=== PATIENT | male | born 1975 | race Caucasian/White ===

== ENCOUNTER 2018-09-05 21:12 | Emergency (ER) | payer BC ==
[~2018-09-05] VITALS: Ht 188 cm; Wt 90.7 kg
[2018-09-05 21:38] VITALS: BP 126/84
[2018-09-05] MEDS ORDERED: PROMETHAZINE-C118 M1 ORAL (22:13)
[2018-09-05] MEDS ORDERED: AMOXICILLIN500 MG ORAL (22:13)
[2018-09-05 22:15] VITALS: BP 126/84
--- NOTE | 2018-09-06 00:58 | Emergency Room Report ---
History of Present Illness General Chief Complaint: General Complaint Source: Patient Present Illness HPI 42-year-old male presents ED for evaluation. Complaining of sore throat and cough. Started 2 weeks ago. He is not improving. Pain is dull, 5 out of 10, nonradiating. Cough is productive with yellowish phlegm. Afebrile. Denies sick contacts or recent travel. No other aggravating relieving factors. Denies any other associated symptoms Allergies: Coded Allergies: No Known Allergies (Unverified , 09/05/18) Patient History Past Medical History: none Past Surgical History: none Pertinent Family History: none Social History: Denies: smoking, alcohol use, drug use Immunizations: UTD Reviewed Nursing Documentation: PMH: Agreed; PSxH: Agreed Nursing Documentation-PMH Past Medical History: No Stated History Review of Systems All Other Systems: negative except mentioned in HPI Physical Exam Vital Signs Date Time Temp Pulse Resp B/P (MAP) Pulse Ox O2 Delivery O2 Flow Rate FiO2 09/05/18 21:17 98.1 79 18 126/84 99 Room Air Sp02 EP Interpretation: reviewed, normal General Appearance: no apparent distress, alert, GCS 15, non-toxic Head: normocephalic Eyes: bilateral eye normal inspection, bilateral eye PERRL ENT: hearing grossly normal, no angioedema, normal voice, TMs + canals normal, pharyngeal erythema, tonsillar exudate Neck: full range of motion, supple, supple/symm/no masses Respiratory: chest non-tender, lungs clear, normal breath sounds, speaking full sentences Cardiovascular #1: regular rate, rhythm, no edema Gastrointestinal: normal inspection Rectal: deferred Genitourinary: no CVA tenderness Musculoskeletal: normal inspection Neurologic: alert, oriented x3, responsive, motor strength/tone normal, sensory intact, speech normal Psychiatric: normal inspection Skin: normal inspection Lymphatic: normal inspection Medical Decision Making Diagnostic Impression: Primary Impression: Pharyngitis Qualified Codes: J02.9 - Acute pharyngitis, unspecified ER Course Hospital Course 42-year-old male presents to ED complaining of sore throat + cough Differential diagnoses include: URI, pharyngitis, otitis media Clinical course Patient placed on stretcher. After initial history, physical exam reveals a male in no acute distress. Bilateral TM unremarkable. There is pharyngeal erythema w/ tonsillar exudates. No lymphadenopathy. Bilateral TM unremarkable. Lungs clear Consideration for viral pharyngitis. However symptoms persisting for more than 2 weeks. We will treat with antibiotics. Safe for discharge or close outpatient follow-up. States he has a PMD Diagnosis - pharyngitis Stable and discharged home with prescriptions for promethazine/codeine, amoxicillin. Instructed to followup with PMD. return to ED if symptoms recur or worsen Last Vital Signs Date Time Temp Pulse Resp B/P (MAP) Pulse Ox O2 Delivery O2 Flow Rate FiO2 09/05/18 22:15 98.1 79 18 126/84 99 Room Air Status: improved Disposition: HOME, SELF-CARE Condition: Stable Scripts Codeine/Promethazine Hcl* (PROMETHAZINE-CODEINE SYRUP*) 118 Ml Syrup 5 ML ORAL Q6H PRN for For Cough, #118 ML 0 Refills Prov: Davy Waters MD 09/05/18 Amoxicillin* (AMOXIL*) 500 Mg Capsule 500 MG ORAL THREE TIMES A DAY, #21 CAP Prov: Davy Waters MD 09/05/18 Referrals: NOT CHOSEN IPA/,REFERRING (PCP) Patient Instructions: Pharyngitis, [id number] Davy Waters MD Sep 06, 2018 00:58
== END 2018-09-05 23:00 | disposition home or self-care (01) ==
LOC: EMR 22:32
DX: J02.9 Acute pharyngitis, unspecified (principal)
CPT/HCPCS: 99282

== ENCOUNTER 2019-12-23 20:58 | Emergency (ER) | payer BC ==
[~2019-12-23] VITALS: Ht 188 cm; Wt 89.4 kg
[~2019-12-23 20:58] MED LIST: AMOXICILLIN500 MG ORAL; PROMETHAZINE-C118 M1 ORAL
--- NOTE | 2019-12-23 21:00 | NUR ---
ED Nurse Note: PT WALKED IN TO ED C/O RIGHT MIDDLE TOE PAIN S/P CHAIR FALLING ON IT AT 1300 TODAY. DOES NOT PRESENT WITH INJURY OR TRAUMA. VSS, NAD, AAOX4, TOE CLEAN DRY AND INTACT
--- NOTE | 2019-12-23 21:20 | Emergency Room Report ---
History of Present Illness General Chief Complaint: Lower Extremity Injury Source: Patient Present Illness HPI Disclaimer: Please note that this report is being documented using DRAGON technology. This can lead to erroneous entry secondary to incorrect interpretation by the dictating instrument. HPI: 44-year-old male presents for evaluation of left toe pain. Patient excellently dropped a chair on the third toe just over the toenail proximally 1 PM this afternoon. Noted pain and throbbing throughout the day. Difficulty with ambulating. He tried to self trephination thinking that it might be a subungual hematoma as he has had in the past. He was not able to penetrate through the nail. Has not taken any medication since. Denies any pain in the midfoot or the ankle. No other injury reported. No other complaints at this time. PMH: Denies PSH: Denies Allergies: Denies Allergies: Coded Allergies: No Known Allergies (Unverified , 09/05/18) COVID-19 Screening Contact w/high risk pt: No Recent Travel to affected area: No Experienced COVID-19 symptoms?: No COVID-19 Testing performed MEDICAL IMAGING TECHNICIAN: No Nursing Documentation-PMH Past Medical History: No Stated History Review of Systems All Other Systems: negative except mentioned in HPI Physical Exam Vital Signs Date Time Temp Pulse Resp B/P (MAP) Pulse Ox O2 Delivery O2 Flow Rate FiO2 12/23/19 21:05 98.1 78 18 132/72 (92) 99 Room Air General: Awake and alert, no acute distress HEENT: NC/AT. EOMI. Resp: Normal work of breathing Skin: Intact. No abrasions, laceration or rash over the exposed skin MSK: Normal tone and bulk. Moving all extremities. No obvious deformity. No tenderness in the midfoot or over the medial or lateral malleolus on the left ankle. There is tenderness palpation over the nail of the middle toe on the left foot. No subungual hematoma. No signs of surrounding cellulitis, infection, no skin breakdown. Over the toenail itself there is a discoloration presumably from the attempted trephination that does not penetrate through to the nail Neuro: Awake and alert. Mentating appropriately Medical Decision Making Diagnostic Impression: Primary Impression: Toe contusion ER Course 44-year-old male presents for evaluation of left toe pain after an injury. No evidence of subungual hematoma. Concern for fracture or dislocation x-ray was obtained. No evidence of fracture or subluxation. Patient will be treated with NSAIDs for toe contusion. Can return to activities as able. Follow-up with PMD as needed. He understands and agrees with this treatment plan. Other X-Ray Diagnostic Results Other X-Ray Diagnostic Results : X-Ray ordered: Left toes # of Views/Limited Vs Complete: 3 View Indication: Pain EP Interpretation: Yes Interpretation: no dislocation, no soft tissue swelling, no fractures Impression: No acute disease Electronically Signed by: Electronically signed by Dr. Scott Phillips Last Vital Signs Date Time Temp Pulse Resp B/P (MAP) Pulse Ox O2 Delivery O2 Flow Rate FiO2 12/23/19 21:05 98.1 78 18 132/72 (92) 99 Room Air Disposition: HOME, SELF-CARE Condition: Stable Scripts Ibuprofen* (MOTRIN*) 600 Mg Tablet 600 MG ORAL Q6H PRN for For Pain, #30 TAB 0 Refills Prov: Scott Phillips MD 12/23/19 Referrals: NON PHYSICIAN (PCP) Scott Phillips MD December 23, 2019 21:20
--- NOTE | 2019-12-23 21:30 | NUR ---
ED Nurse Note: XR AT BEDSIDE
[2019-12-23] MEDS ORDERED: IBUPROFEN600 M1 ORAL (21:41)
--- NOTE | 2019-12-23 21:42 | Diagnostic Imaging Report ---
Left toe 3 views History: Pain, injury Findings: Metatarsal, MTP joints, distal digits, interphalangeal joints are noted to be normal. Negative for fracture or subluxation. Soft tissues are unremarkable. Impression: 1. Negative for fracture or subluxation.
[2019-12-23 21:52] VITALS: BP 132/72
--- NOTE | 2019-12-23 21:52 | NUR ---
ER DISCHARGE NOTE: Patient is cleared to be discharged per ERMD, pt is aox4, on room air, with stable vital signs. pt was given dc and prescription instructions, pt was able to verbalize understanding, pt id band removed without complications. pt is able to ambulate with steady gait. pt took all belongings.
== END 2019-12-23 21:52 | disposition home or self-care (01) ==
LOC: EMR 21:17
DX: S90.122A Contusion of left lesser toe(s) without damage to nail, initial encounter (principal); W23.0XXA Caught, crushed, jammed, or pinched between moving objects, initial encounter; Y92.9 Unspecified place or not applicable
CPT/HCPCS: 99283